=== PATIENT | female | born 1950 | race Caucasian/White ===

== ENCOUNTER 2018-01-18 16:12 | Emergency (ER) | payer BC ==
[~2018-01-18] VITALS: Ht 162.6 cm; Wt 47.2 kg
[2018-01-18] MEDS ORDERED: ASPIRIN 81 MG CHEW TAB PO ONE (17:45)
--- NOTE | 2018-01-18 18:31 | Diagnostic Imaging Report ---
History:Worsening vertigo Comparison studies:None Technique: Axial images were obtained from the skull base to the vertex. Coronal and sagittal images reconstructed from the axial data. Intravenous contrast: None Findings: Scalp/skull: No abnormalities. Extra-axial spaces: No masses. No fluid collections. Brain sulci: Mildly prominent. Ventricles: Mild supratentorial ventricular prominence. Parenchyma: Heterogeneous intra-axial mass with central calcification measuring 2.9 x 2.8 x 3.4 cm ([id number]) at the cerebellar vermis. Surrounding vasogenic edema at the bilateral cerebellar hemispheres, effacement of the fourth ventricle, posterior fossa cistern and mild tonsillar herniation. Sellar/suprasellar region: No abnormalities. Craniocervical junction: Patent foramen magnum. No Chiari one malformation. Incidental findings: Atherosclerotic calcifications in the carotid siphons . Impression: 1. 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 Signed by: DR Jose De La Cruz M.D. on 01/18/2018 6:27 PM
[2018-01-18] MEDS ORDERED: DEXAMETHASONE SOD PHOS 10 MG/1 ML VIAL IV ONE (18:45)
[2018-01-18] MEDS ORDERED: LEVETIRACETAM 500MG/5ML VIAL 1,000 MG in SODIUM CHLORIDE 0.9% 100 ML 100 ML IV STA (20:16)
[2018-01-18] MEDS ORDERED: LEVETIRACETAM 500MG/5ML VIAL 1,000 MG in SODIUM CHLORIDE 0.9% 100 ML 100 ML IV SCH (20:30)
[2018-01-18] MEDS ORDERED: ALBUMIN 25% 12.5GM 0.25 GM/ML BTL IV ONE (20:45)
[2018-01-18] MEDS ORDERED: ALBUMIN 25% 12.5GM 0.25 GM/ML BTL IV SCH (21:15)
[2018-01-18 21:42] LABS: ALANINE AMINOTRANSFERASE 12 IU/L (0-55); ALBUMIN 3.4 g/dL (3.5-5.0); ALBUMIN/GLOBULIN RATIO 0.8 (0.8-2.0); ALKALINE PHOSPHATASE 86 IU/L (40-150); BLOOD UREA NITROGEN 11 mg/dL (7-26); BUN/CREATININE RATIO 15 (6-25); CALCIUM 9.9 mg/dL (8.4-10.2); CARBON DIOXIDE 30 mmol/L (22-29); CHLORIDE 103 mmol/L (98-107); CREATINE KINASE 34 IU/L (29-168); CREATININE, SERUM 0.73 mg/dL (0.57-1.11); EST GLOMERULAR FILTRATION RATE > 60 ML/MIN (60-); GLUCOSE 105 mg/dL (74-118); SODIUM 143 mmol/L (136-145)
[2018-01-18 21:43] LABS: AMPHETAMINES SCREEN,URINE NEGATIVE (NEGATIVE); BENZODIAZEPINES SCREEN,URINE NEGATIVE (NEGATIVE); BILIRUBIN,URINE NEGATIVE (NEGATIVE); CLARITY,URINE CLEAR (CLEAR); COLOR,URINE YELLOW (YELLOW); KETONES,URINE NEGATIVE (NEGATIVE); LEUKOCYTE ESTERASE ,URINE NEGATIVE (NEGATIVE); NITRITE,URINE NEGATIVE (NEGATIVE); PHENCYCLIDINE SCREEN,URINE NEGATIVE (NEGATIVE); PROTEIN,URINE DIPSTICK NEGATIVE (NEGATIVE); RBC,URINE 0-5 /HPF (0-5); URINE UROBILINOGEN 0.2 mg/dL (0.2 - 1); WBC,URINE (MAN) 0-5 /HPF (0-5)
[2018-01-18 21:44] LABS: INR 1.14; PARTIAL THROMBOPLASTIN TIME 36.5 seconds (23.8-35.5); PROTHROMBIN TIME 13.7 seconds (11.9-14.5)
[2018-01-18 21:45] LABS: BASOPHILS % 0.4 % (0.0-1.0); EOSINOPHILS % 0.5 % (0.0-6.0); HEMOGLOBIN 14.7 g/dL (12.0-16.0); LYMPHOCYTES # (AUTO) 1.8 (1.0-3.2); LYMPHOCYTES % 21.7 % (18.0-39.1); MEAN CORPUSCULAR HGB CONC 34.2 g/dL (31-35); MEAN CORPUSCULAR VOLUME 87.8 fL (81-99); MONOCYTES # (AUTO) 0.6 (0.2-0.8); MONOCYTES % 6.7 % (4.4-11.3); NEUTROPHILS # (AUTO) 5.9 (2.1-6.9); NEUTROPHILS % 70.2 % (38.7-80.0); PLATELET COUNT 331 x10e3/uL (140-360); RED CELL DISTRIBUTION WIDTH 13.7 % (11.7-14.4)
== END 2018-01-18 22:30 | disposition short-term general hospital (02) ==
LOC: ER 16:12
DX: R42 Dizziness and giddiness (principal); R22.0 Localized swelling, mass and lump, head; R26.0 Ataxic gait; F17.210 Nicotine dependence, cigarettes, uncomplicated
CPT/HCPCS: 36415; 70450; 80053; 80307; 81001; 82550; 82553; 84484; 85025; 85610; 85730; 93005; 99284; J1100

== ENCOUNTER → 2018-08-04 | Outpatient (CLI) | payer MEDICARE ==
[~2018-08-04] MED LIST: MIRTAZAPINE15 MG PO; TESSALON PERLE100 MG PO; XANAX1 MG PO
--- NOTE | 2018-08-04 14:53 | Diagnostic Imaging Report ---
EXAM: XR CHEST 2 VIEWS DATE: 08/04/2018 1:57 PM INDICATION: Wheezing COMPARISON: None FINDINGS: Lines and Tubes: Right chest wall port tip cavoatrial junction. Heart and Mediastinum: Heart not enlarged. Lungs and Pleura: Ill-defined right hilar mass with small to moderate right effusion. Bones and Soft Tissues: No acute findings. IMPRESSION: 1. Right hilar masslike opacity. Correlation for history of malignancy. No comparison available. Infectious process superimposed possible. 2. Small to moderate right effusion. Questionable trace left effusion. Signed by: Dr. Tomer Rodriguez MD on 08/04/2018 2:50 PM
== END ==
LOC: RAD 13:47
PROVIDERS: ATTEND Psychiatry & Neurology Neurology
DX: R06.2 Wheezing (principal); R91.8 Other nonspecific abnormal finding of lung field
CPT/HCPCS: 71046